=== PATIENT | male | born 1985 | race Caucasian/White ===

== ENCOUNTER 2017-02-16 15:26 | Emergency (ER) | payer OTHER ==
[2017-02-16] MEDS ORDERED: Ondansetron 4 MG/2 ML SDV IVPUSH ONE (15:34)
[2017-02-16] MEDS ORDERED: Nitroglycerin/D5W 250 ML IV SCH (15:45)
[2017-02-16 15:51] VITALS: BP 134/80
--- NOTE | 2017-02-16 16:08 | EDM.PDOC ---
ED HPI GENERAL MEDICAL PROBLEM - General Chief Complaint: Drug or Alcohol Abuse Stated Complaint: EVAL Time Seen by Provider: 02/16/17 15:31 Source of Information: Reports: Patient, RN Notes Reviewed History Limitations: Reports: No Limitations - History of Present Illness INITIAL COMMENTS - FREE TEXT/NARRATIVE: 31-year-old gentleman presents emergency department today with complaint of alcohol abuse he has known history of alcohol abuse and dependence actually contacted the detoxification facility himself and set up for admission unfortunately he has had difficulty ambulating secondary to his impairment. He states he's been on a 3 week binge mainly with wild [place] last drank this morning - Related Data Allergies Allergy/AdvReac Type Severity Reaction Status Date / Time No Known Allergies Allergy Verified 07/12/14 08:53 Home Meds: Home Meds Acetaminophen [Tylenol] 650 mg PO Q4H PRN #100 tablet 07/19/14 [Rx] FLUoxetine [PROzac] 20 mg PO DAILY #30 cap 07/19/14 [Rx] Multivitamin [Daily Vitamin] 1 each PO DAILY #30 tablet 07/19/14 [Rx] Past Medical History - Past Health History Medical/Surgical History: Denies Medical/Surgical History Social & Family History - Tobacco Use Smoking Status *Q: Never Smoker Years of Tobacco use: 8 Used Tobacco, but Quit: No Month Tobacco Last Used: June Second Hand Smoke Exposure: No - Alcohol Use Days Per Week of Alcohol Use: 7 Number of Drinks Per Day: 12 Total Drinks Per Week: 84 Date of Last Drink: 02/16/17 - Recreational Drug Use Recreational Drug Use: No ED ROS GENERAL - Review of Systems Review Of Systems: See Below Constitutional: Reports: No Symptoms HEENT: Reports: No Symptoms Respiratory: Reports: No Symptoms Cardiovascular: Reports: No Symptoms GI/Abdominal: Reports: No Symptoms : Reports: No Symptoms ED EXAM, BEHAVIORAL HEALTH - Physical Exam Exam: See Below Exam Limited By: Intoxication General Appearance: Alert, No Apparent Distress Eye Exam: Bilateral Eye: Normal Inspection Head: Atraumatic, Normocephalic Neck: Normal Inspection, Supple, Non-Tender, Full Range of Motion Respiratory/Chest: No Respiratory Distress, Lungs Clear, Normal Breath Sounds, No Accessory Muscle Use Cardiovascular: Regular Rate, Rhythm, No Murmur GI/Abdominal: Normal Bowel Sounds, Soft, Non-Tender COURSE, BEHAVIORAL HEALTH COMP - Course Vital Signs: Last Vital Signs Temp 97.5 F 02/16/17 15:49 Pulse 88 02/16/17 15:49 Resp 16 02/16/17 15:49 BP 134/80 02/16/17 15:49 Pulse Ox 94 L 02/16/17 15:49 Orders, Labs, Meds: Active Orders 24 hr Category Date Time Status Cardiac Monitoring [RC] .As Directed Care 02/16/17 15:32 Inactive EKG Documentation Completion [RC] ASDIRECTED Care 02/16/17 15:33 Inactive EKG 12 Lead [EK] Stat Ther 02/16/17 15:33 Stop Req Laboratory Tests 02/16/17 02/16/17 02/16/17 Range/Units 16:15 16:15 16:15 WBC 6.0 (4.5-11.0) K/uL RBC 4.65 (4.30-5.90) M/uL Hgb 12.9 (12.0-15.0) g/dL Hct 38.4 L (40.0-54.0) % MCV 83 (80-98) fL MCH 28 (27-31) pg MCHC 34 (32-36) % Plt Count 214 (150-400) K/uL Neut % (Auto) 77 H (36-66) % Lymph % (Auto) 18 L (24-44) % [place] % (Auto) 5 (2-6) % Eos % (Auto) 0 L (2-4) % Baso % (Auto) 0 (0-1) % Sodium 137 L (140-148) mmol/L Potassium 3.5 L (3.6-5.2) mmol/L Chloride 102 (100-108) mmol/L Carbon Dioxide 28 (21-32) mmol/L Anion Gap 10.5 (5.0-14.0) mmol/L BUN 9 (7-18) mg/dL Creatinine 1.2 (0.8-1.3) mg/dL Est Cr Clr Drug Dosing 87.88 mL/min Estimated GFR (MDRD) > 60 (>60) Glucose 142 H (74-106) mg/dL Calcium 8.1 L D (8.5-10.1) mg/dL Total Bilirubin 0.4 (0.2-1.0) mg/dL AST 31 (15-37) U/L ALT 34 (12-78) U/L Alkaline Phosphatase 66 (46-116) U/L Total Protein 6.6 (6.4-8.2) g/dL Albumin 3.8 (3.4-5.0) g/dL Globulin 2.8 (2.3-3.5) g/dL Albumin/Globulin Ratio 1.4 (1.2-2.2) Ethyl Alcohol 367 mg/dL Medications Discontinued Medications Generic Name Dose Route Start Last Admin Trade Name Nasim PRN Reason Stop Dose Admin Ondansetron HCl 4 mg 02/16/17 15:34 02/16/17 16:05 Zofran IVPUSH 02/16/17 15:35 Not Given ONETIME ONE Departure - Departure Time of Disposition: 16:56 Disposition: DC/Tfer to Inpt Rehab Fac 62 Condition: Fair Clinical Impression: Alcohol abuse Alcohol intoxication Qualifiers: Complication of substance-induced condition: uncomplicated Qualified Code(s): F10.920 - Alcohol use, unspecified with intoxication, uncomplicated - Discharge Information Forms: ED Department Discharge - My Orders Last 24 Hours: My Active Orders 02/16/17 15:32 Cardiac Monitoring [RC] .As Directed 02/16/17 15:33 EKG Documentation Completion [RC] ASDIRECTED EKG 12 Lead [EK] Stat - Assessment/Plan Last 24 Hours: My Active Orders 02/16/17 15:32 Cardiac Monitoring [RC] .As Directed 02/16/17 15:33 EKG Documentation Completion [RC] ASDIRECTED EKG 12 Lead [EK] Stat Plan: Assessment Acuity = chronic Site and laterality = alcohol abuse and intoxication Etiology = whiskey Manifestations = none Location of injury = home Lab values = CBC within normal limits sodium low at 137 consistent hyponatremia , potassium low at 3.5 consistent with hypokalemia EtOH 367 Plan he is able to ambulate his alcohol limited is below 400 therefore is going to be transferred to [facility] Patient was in agreement with the plan all questions were answered This note was dictated using [employer] voice recognition software please call with any questions.
== END 2017-02-16 17:25 ==
LOC: JP.ED 15:26
DX: F10.920 Alcohol use, unspecified with intoxication, uncomplicated (principal); Z79.899 Other long term (current) drug therapy; Y90.8 Blood alcohol level of 240 mg/100 ml or more
CPT/HCPCS: 36415; 80053; 85025; 96374; 99285; G0480